=== PATIENT | female | born 1960 | race Caucasian/White ===

== ENCOUNTER 2023-12-17 14:57 | Emergency (ER) | payer MEDICARE, BC ==
[2023-12-17 15:40] VITALS: RESP 18; TEMP 97.9
--- NOTE | 2023-12-17 16:11 | ERPHSYRPT ---
- History of Present Illness Time Seen by Provider: 12/17/23 16:06 Historian: patient, family Exam Limitations: no limitations Patient Subjective Stated Complaint: pt state she is having left flank pain Triage Nursing Assessment: pt ambulated into the er; pt is axo x4; c/o left flank pain; pt states 8/10 left flank pain; pt denies pain to abd; active bowel sound in all quads; tenderness to left flank; c/o nausea, denies vomiting; skin PDW; no respiratory distress present; hypertensive Physician History: pt had onset of left flank pain today and hx prior stones and requiring surgery previously. No hx trauma. Some vomiting. mainly left flank and radiating into abd. Abd soft nontender without peritoneal signs or masses. no distension. chest clear ht reg . No CP or SObreath. No neuro symptoms. normal mental status. family is in ER as confirming independent source for Hx. Discussed risks/benefits with pt and family for testing /tx including CBC,CMP, CT ABD, Lactate Lipase AMylase, UA, IVF, Morphine, Benedryl, Zofran, and tehy wish to proceed so thesee are ordered. results discussed with pt and family. Timing/Duration: today Activities at Onset: none Quality: fullness, sharpness, throbbing Abdominal Pain Onset Location: flank Pain Radiation: flank, back Severity of Pain-Max: moderate Severity of Pain-Current: moderate Modifying Factors: Improves With: nothing Associated Symptoms: back, nausea, vomiting Previous symptoms: different symptoms, no recent treatment Allergies/Adverse Reactions: No Known Drug Allergies Allergy (Verified 04/08/16 18:53) Home Medications: Insulin Aspart [Novolog] 1 unit SQ DAILY 03/11/12 [History] Cephalexin Mh 250 mg [Keflex 250 mg] 250 mg PO DAILY 12/17/23 [History] Ergocalciferol (Vitamin D2) [Vitamin D2] 1,250 mcg PO WEEKLY 12/17/23 [History] Fluoxetine HCl 40 mg PO DAILY 12/17/23 [History] Lisinopril/Hydrochlorothiazide [Lisinopril-Hctz 20-12.5 mg Tab] 0.5 tab PO DAILY 12/17/23 [History] Omeprazole 40 mg PO DAILY 12/17/23 [History] Semaglutide [Ozempic] 0.25 mg SQ WEEKLY 12/17/23 [History] Topiramate [Topamax] 1 tab PO BID 12/17/23 [History] Tramadol HCl 50 mg [Ultram 50 mg] 50 mg PO BID PRN 12/17/23 [History] methocarbamoL [Methocarbamol] 500 mg PO BID 12/17/23 [History] Hx Tetanus, Diphtheria Vaccination/Date Given: Yes Hx Influenza Vaccination/Date Given: Yes Hx Pneumococcal Vaccination/Date Given: No Travel Risk - International Travel Have you traveled outside of the country in past 3 weeks: No - Emerging Infectious Disease Are you exhibiting symptoms associated with any current EIDs: No - Review of Systems Constitutional: No Fever, No Chills Eyes: No Symptoms Ears, Nose, & Throat: No Symptoms Respiratory: No Cough, No Dyspnea Cardiac: No Chest Pain, No Edema, No Syncope Abdominal/Gastrointestinal: Abdominal Pain, Nausea, Vomiting, No Diarrhea Genitourinary Symptoms: Flank Pain, No Dysuria Musculoskeletal: No Back Pain, No Neck Pain Skin: No Rash Neurological: No Dizziness, No Focal Weakness, No Sensory Changes Psychological: No Symptoms Endocrine: No Symptoms Hematologic/Lymphatic: No Symptoms Immunological/Allergic: No Symptoms All Other Systems: Reviewed and Negative - Past Medical History Pertinent Past Medical History: Yes Neurological History: Migraines ENT History: No Pertinent History Cardiac History: High Cholesterol, Hypertension Respiratory History: No Pertinent History Endocrine Medical History: Diabetes Type I Musculoskeletal History: Fibromyalgia, Osteoporosis GI Medical History: GERD, Hernia, Polyps, Ulcer History: Renal Disease Psycho-Social History: Anxiety Female Reproductive Disorders: No Pertinent History Other Medical History: polycystic kidneys. MITRAL VALVE PROLAPSE WITH REGURG. - Past Surgical History Past Surgical History: Yes Neuro Surgical History: No Pertinent History Cardiac: No Pertinent History Respiratory: No Pertinent History Gastrointestinal: No Pertinent History Genitourinary: Other Musculoskeletal: Orthopedic Surgery Female Surgical History: Hysterectomy, Dilation & Curettage, Other Other Surgical History: partial nephrectomy left kidney, bladder suspension, neck fusion Significant Family History: no pertinent family hx, hypertension - Social History Smoking Status: Never smoker Exposure to second hand smoke: No Alcohol Use: None Drug Use: none Patient Lives Alone: No - Social Determinants of Health Will the patient participate in the screening: Yes Do you worry about a steady place to live?: No Do you have any problems with any of the following?: No known problems In the past 12 months,have you had to go without utilities?: No Transportation Issues: No Has anyone in your support network made you feel unsafe?: No Have you or anyone in your house had to go without enough: No - Nursing Vital Signs Nursing Vital Signs: Initial Vital Signs Temperature 97.9 F 12/17/23 15:25 Pulse Rate 58 L 12/17/23 15:25 Respiratory Rate 18 12/17/23 15:25 Blood Pressure 168/72 12/17/23 15:25 O2 Sat by Pulse Oximetry 98 12/17/23 15:25 Pain Scale Pain Intensity 5 - Physical Exam General Appearance: no apparent distress, alert Eye Exam: PERRL/EOMI, eyes nml inspection Ears, Nose, Throat Exam: normal ENT inspection, pharynx normal, moist mucous membranes Neck Exam: normal inspection, non-tender, supple, full range of motion Respiratory Exam: normal breath sounds, lungs clear, No respiratory distress Cardiovascular Exam: regular rate/rhythm, normal heart sounds Gastrointestinal/Abdomen Exam: soft, tenderness (left flank tender), guarding, N o distention, No mass, No pulsatile mass Pelvic Exam: deferred Rectal Exam: deferred Back Exam: normal inspection, normal range of motion, No CVA tenderness, No vertebral tenderness Extremity Exam: normal inspection, normal range of motion, pelvis stable Neurologic Exam: alert, oriented x 3, cooperative, normal mood/affect, nml cerebellar function, sensation nml, No motor deficits Skin Exam: normal color, warm, dry SpO2: 98 - Course Nursing assessment & vital signs reviewed: Yes - CT Exams Abdomen/Pelvis CT Interpretation: Tele-radiologist Report, Other (left renal stone and renal cortical cysts/nodules) Ordered Tests: Active Orders 24 hr Category Date Time Status IV Insertion STAT Care 12/17/23 16:06 Active ABDOMEN AND PELVIS W/0 CONTRAS [CT] Stat Exams 12/17/23 16:28 Completed AMYLASE Stat Lab 12/17/23 16:20 Completed CBC W DIFF Stat Lab 12/17/23 16:20 Completed CMP Stat Lab 12/17/23 16:20 Completed HCG QUALITATIVE, SERUM Stat Lab 12/17/23 16:20 Completed LIPASE Stat Lab 12/17/23 16:20 Completed Lactic Acid Stat Lab 12/17/23 16:20 Completed UA W/RFX UR CULTURE Stat Lab 12/17/23 16:09 Completed Medication Summary Discontinued Medications Generic Name Dose Route Start Last Admin Trade Name Booker PRN Reason Stop Dose Admin Diphenhydramine HCl 25 mg 12/17/23 16:06 12/17/23 16:38 Diphenhydramine Hcl 50 Mg/Ml Vial IV 12/17/23 16:07 25 mg STAT ONE Administration Diphenhydramine HCl Confirm 12/17/23 16:22 Diphenhydramine Hcl 50 Mg/Ml Vial Administered 12/17/23 16:23 Dose 50 mg .ROUTE .STK-MED ONE Sodium Chloride 1,000 mls @ 999 mls/hr 12/17/23 16:06 12/17/23 18:32 Sodium Chloride 0.9% 1000 Ml IV 12/17/23 17:06 Infused .Q1H1M STA Infusion Sodium Chloride Confirm 12/17/23 16:22 Sodium Chloride 0.9% 1000 Ml Administered 12/17/23 16:23 Dose 1,000 mls @ ud .ROUTE .STK-MED ONE Morphine Sulfate 4 mg 12/17/23 16:06 12/17/23 16:41 Morphine Sulfate 4 Mg/Ml Injection IV 12/17/23 16:07 4 mg STAT ONE Administration Morphine Sulfate Confirm 12/17/23 16:22 Morphine Sulfate 4 Mg/Ml Injection Administered 12/17/23 16:23 Dose 4 mg .ROUTE .STK-MED ONE Ondansetron HCl 4 mg 12/17/23 16:06 12/17/23 16:36 Ondansetron Hcl 4 Mg/2 Ml Vial IV 12/17/23 16:07 4 mg STAT ONE Administration Ondansetron HCl Confirm 12/17/23 16:22 Ondansetron Hcl 4 Mg/2 Ml Vial Administered 12/17/23 16:23 Dose 4 mg .ROUTE .STK-MED ONE Lab/Rad Data: Laboratory Result Diagrams 12/17/23 16:20 12/17/23 16:20 Laboratory Results 12/17/23 12/17/23 12/17/23 Range/Units 16:20 16:20 16:20 WBC (3.98-10.04) x10^3/uL RBC (3.93-5.22) x10^6/uL Hgb (11.2-15.7) g/dL Hct (34.1-44.9) % MCV (79.4-94.8) fL MCH (25.6-32.2) pg MCHC (32.2-35.5) g/dL RDW (11.7-14.4) % Plt Count (182-369) x10^3/uL MPV (9.4-12.3) fL Gran % (34.0-71.1) % Immature Gran % (Auto) (0.001-0.429) % Nucleat RBC Rel Count (0.00-0.2) % Eos # (Auto) (0.04-0.36) x10^3/uL Immature Gran # (Auto) (0.001-0.031) x10^3u/L Absolute Lymphs (auto) (1.18-3.74) x10^3/uL Absolute Monos (auto) (0.24-0.86) x10^3/uL Absolute Nucleated RBC (0.00-0.012) x10^3u/L Lymphocytes % (19.3-51.7) % Monocytes % (4.7-12.5) % Eosinophils % (0.7-5.8) % Basophils % (0.1-1.2) % Absolute Granulocytes (1.56-6.13) x10^3/uL Basophils # (0.01-0.08) x10^3/uL Sodium 140 (135-145) mmol/L Potassium 3.9 (3.5-5.1) mmol/L Chloride 107 (98-107) mmol/L Carbon Dioxide 23 (22-30) mmol/L Anion Gap 13.4 (5-15) MEQ/L BUN 21 H (7-17) mg/dL Creatinine 1.12 H (0.52-1.04) mg/dL Estimated GFR 54.9 ML/MIN Glucose 103 (74-106) mg/dL Lactic Acid 0.9 (0.4-2.0) Calcium 9.3 (8.4-10.2) mg/dL Total Bilirubin 0.60 (0.2-1.3) mg/dL AST 26 (14-36) U/L ALT 21 (0-35) U/L Alkaline Phosphatase 94 (38-126) U/L Serum Total Protein 7.5 (6.3-8.2) g/dL Albumin 4.3 (3.5-5.0) g/dL Amylase 74 (30-110) U/L Lipase 207 (23-300) U/L Serum HCG, Qual NEGATIVE (NEGATIVE) Urine Color (Yellow) Urine Appearance (Clear) Urine pH (4.6-8.0) Ur Specific [place] (1.005-1.030) Urine Protein (Negative) Urine Glucose (UA) (Negative) mg/dL Urine Ketones (Negative) Urine Blood (Negative) Urine Nitrite (Negative) Urine Bilirubin (Negative) Urine Urobilinogen (0.2) mg/dL Ur Leukocyte Esterase (Negative) U Hyaline Cast (Auto) (0-2) /LPF Urine Microscopic RBC (0-5) /HPF Urine Microscopic WBC (0-5) /HPF Ur Epithelial Cells (None Seen) /HPF Urine Bacteria (None Seen) /HPF Urine Culture Reflexed (NO) 12/17/23 12/17/23 Range/Units 16:20 16:09 WBC 7.0 (3.98-10.04) x10^3/uL RBC 4.59 (3.93-5.22) x10^6/uL Hgb 13.2 (11.2-15.7) g/dL Hct 40.3 (34.1-44.9) % MCV 87.8 (79.4-94.8) fL MCH 28.8 (25.6-32.2) pg MCHC 32.8 (32.2-35.5) g/dL RDW 13.0 (11.7-14.4) % Plt Count 211 (182-369) x10^3/uL MPV 10.5 (9.4-12.3) fL Gran % 60.9 (34.0-71.1) % Immature Gran % (Auto) 0.3 (0.001-0.429) % Nucleat RBC Rel Count 0.0 (0.00-0.2) % Eos # (Auto) 0.11 (0.04-0.36) x10^3/uL Immature Gran # (Auto) 0.02 (0.001-0.031) x10^3u/L Absolute Lymphs (auto) 2.19 (1.18-3.74) x10^3/uL Absolute Monos (auto) 0.37 (0.24-0.86) x10^3/uL Absolute Nucleated RBC 0.00 (0.00-0.012) x10^3u/L Lymphocytes % 31.2 (19.3-51.7) % Monocytes % 5.3 (4.7-12.5) % Eosinophils % 1.6 (0.7-5.8) % Basophils % 0.7 (0.1-1.2) % Absolute Granulocytes 4.29 (1.56-6.13) x10^3/uL Basophils # 0.05 (0.01-0.08) x10^3/uL Sodium (135-145) mmol/L Potassium (3.5-5.1) mmol/L Chloride (98-107) mmol/L Carbon Dioxide (22-30) mmol/L Anion Gap (5-15) MEQ/L BUN (7-17) mg/dL Creatinine (0.52-1.04) mg/dL Estimated GFR ML/MIN Glucose (74-106) mg/dL Lactic Acid (0.4-2.0) Calcium (8.4-10.2) mg/dL Total Bilirubin (0.2-1.3) mg/dL AST (14-36) U/L ALT (0-35) U/L Alkaline Phosphatase (38-126) U/L Serum Total Protein (6.3-8.2) g/dL Albumin (3.5-5.0) g/dL Amylase (30-110) U/L Lipase (23-300) U/L Serum HCG, Qual (NEGATIVE) Urine Color Yellow (Yellow) Urine Appearance Clear (Clear) Urine pH 7.5 (4.6-8.0) Ur Specific [place] 1.020 (1.005-1.030) Urine Protein Negative (Negative) Urine Glucose (UA) Negative (Negative) mg/dL Urine Ketones Negative (Negative) Urine Blood Negative (Negative) Urine Nitrite Negative (Negative) Urine Bilirubin Negative (Negative) Urine Urobilinogen 1.0 A (0.2) mg/dL Ur Leukocyte Esterase Trace A (Negative) U Hyaline Cast (Auto) NONE SEEN (0-2) /LPF Urine Microscopic RBC 0-2 (0-5) /HPF Urine Microscopic WBC 0-2 (0-5) /HPF Ur Epithelial Cells None Seen (None Seen) /HPF Urine Bacteria None Seen (None Seen) /HPF Urine Culture Reflexed NO (NO) - Progress Progress: improved, re-examined Progress Note: 12/17/23 18:44 discussed with pt that although we see a stone we have not necessarily found a cause for her symptoms and further w/u is needed - she and prefer outpt f/u with PMDs rather than further w/u in ER or hospital at this time as she is feeling better and this is reasonable and they have the capacity to make this choice. Counseled pt/family regarding: lab results, diagnosis, need for follow-up, rad results Medical Desision Making - Independent Historian Additional History obtained from: Family - Discussion of managment Reviewed:: Test results, Need for additional workup Agreed on:: Treatment plan, need for follow-up - Diagnostic Testing Diagnostic test were ordered, analyzed, and reviewed by me: Yes Radiological Interpretation: Teleradiologist Report - Risk of complications The pt has a mod risk of morbidity or mortality based on: Need for prescription drug management The pt has a high risk of morbidity or mortality based on: Decision regarding hospitilization or escalation of hosp level of care - Departure Departure Disposition: Home Clinical Impression: flank/abd pain unknown cause, renal stones and cortical cysts Condition: Good Critical Care Time: No Referrals: DEONNA MOORE MD [Primary Care Provider] - Follow up/PCP as directed Instructions: Kidney Stones (DC), Flank Pain, Abdominal pain in adults - Discharge instructions Additional Instructions: As we discussed, although you have a kidney stone , there still could be other undetected causes for your pain still developing and follow-up is important with your Drs. Return meantime if not improving, vomiting, dizziness or any other symptoms or concerns. strain urine for stones. THe medical records will have to be called Monday to make copies for you of the lab and CT as they are required to release these and we are not allowed to w ithout their paperwork.
[2023-12-17] MEDS ORDERED: Sodium Chloride 0.9% 1000 ML 1,000 ML ONE (16:22)
[2023-12-17] MEDS ORDERED: Zofran 4 MG/2 ML VIAL ONE (16:22)
[2023-12-17] MEDS ORDERED: MORPHINE SULFATE 4 MG INJ ONE (16:22)
[2023-12-17] MEDS ORDERED: BENADRYL 50 MG/ML ONE (16:22)
[2023-12-17 16:23] LABS: Absolute Neutrophil Ct (ANC) 4.29 x10^3/uL (1.56-6.13); BASOPHIL % 0.7 % (0.1-1.2); Basophil (Absolute #) 0.05 x10^3/uL (0.01-0.08); Eosinophil % 1.6 % (0.7-5.8); Eosinophil (Absolute #) 0.11 x10^3/uL (0.04-0.36); Hematocrit 40.3 % (34.1-44.9); Hemoglobin 13.2 g/dL (11.2-15.7); IMMATURE GRAN # 0.02 x10^3u/L (0.001-0.031); IMMATURE GRAN % 0.3 % (0.001-0.429); Lymphocyte (Absolute #) 2.19 x10^3/uL (1.18-3.74); Lymphocytes % 31.2 % (19.3-51.7); Mean Cell Volume 87.8 fL (79.4-94.8); Mean Corpuscular Hemoglobin 28.8 pg (25.6-32.2); Mean Corpuscular Hgb Concent. 32.8 g/dL (32.2-35.5); Mean Platelet Volume 10.5 fL (9.4-12.3); Monocyte (Absolute #) 0.37 x10^3/uL (0.24-0.86); Monocytes % 5.3 % (4.7-12.5); Neutrophil % 60.9 % (34.0-71.1); Platelet Count 211 x10^3/uL (182-369); Red Blood Count 4.59 x10^6/uL (3.93-5.22)
[2023-12-17 16:31] LABS: ADD URINE CULTURE? NO (NO); Appearance Clear (Clear); Bacteria None Seen /HPF (None Seen); Bilirubin Negative (Negative); Blood Negative (Negative); Epithelial Cells None Seen /HPF (None Seen); Glucose, Urine Negative (Negative); Hyaline Casts NONE SEEN /LPF (0-2); Ketones Negative (Negative); Leukocyte Esterase Trace (Negative); Nitrite Negative (Negative); Ph 7.5 (4.6-8.0); Protein,Urine Dip Negative (Negative); RBC 0-2 /HPF (0-5); WBC 0-2 /HPF (0-5)
[2023-12-17] MEDS: Sodium Chloride 0.9% 1000 ML 1,000 ML IV STA (16:34)
[2023-12-17] MEDS: Zofran 4 MG/2 ML VIAL IV ONE (16:36)
[2023-12-17 16:37] LABS: ALBUMIN 4.3 g/dL (3.5-5.0); ANION GAP 13.4 MEQ/L (5-15); BILIRUBIN,TOTAL 0.6 mg/dL (0.2-1.3); Calcium 9.3 mg/dL (8.4-10.2); Creatinine 1 1.12 mg/dL (0.52-1.04); EST GLOMERULAR FILTRATION RATE 54.9 ML/MIN; Potassium 3.9 mmol/L (3.5-5.1); Total Protein 7.5 g/dL (6.3-8.2)
[2023-12-17] MEDS: BENADRYL 50 MG/ML IV ONE (16:38)
[2023-12-17 16:39] LABS: HCG SERUM TEST NEGATIVE (NEGATIVE)
[2023-12-17] MEDS: MORPHINE SULFATE 4 MG INJ IV ONE (16:41)
--- NOTE | 2023-12-17 18:24 | XRAY ---
CLINICAL HISTORY: left flank pain hx stones COMPARISON: The last study dated 09/21/2021. TECHNIQUE: Spiral axial continuous cuts were taken through the abdomen and pelvis with multiplanar reformatting and without contrast administration. One of the following dose reduction techniques was utilized for this exam: Automated exposure control, adjustment of the mA and/or kV according to patient size, and use of iterative reconstruction. FINDINGS: A small 4mm non-obstructing left lower calyx renal stone is noted with no associated back pressure changes ( stable since the last study). Bilateral cortical renal cysts are noted the largest one at the left upper pole measuring 6.8x5.7 cm with clear content and faint wall calcification, the largest one at the right mid kidney zone measuring 4.8x3.2cm with thin wall and clear content ( stable since the last study). Surgical clips noted at the left pelviureteric junction causing artifact. Both kidneys are of normal size and shape with no back pressure changes. Normal course and caliber of both ureters with no evidence of stones or mural abnormalities. Normal filling of the urinary bladder with no stones, masses or diverticula Normal CT density of the liver parenchyma with average size, regular outline, homogenous texture and no focal or diffuse mass lesion on a noncontrast basis. The retroperitoneal structures including the pancreas, spleen, adrenal glands and great vessels are grossly within normal limits. Normal-appearing appendix. No significant bowel dilatation. The uterus is not visualized, likely surgically removed. No adnexal mass. No significant lymph vishal enlargement or ascitic fluid collection. Suggestion of small fat-containing umbilical hernia. Bone window images showing spondylotic changes of the lumbar spine. Lower chest cuts showed a sizable hiatus hernia (stable since the last study ) IMPRESSION: No time interval changes since the last study regarding the following. A small 4mm non-obstructing left lower calyx renal stone. Bilateral cortical renal cysts more sizable at the left side[Bosniak type I]. A suggestion of small fat-containing umbilical hernia. Moderately sized hiatus hernia. Electronically Signed by: Pamela Aburto MD. (12/17/2023 18:19:45 EDT)
[2023-12-17] MEDS ORDERED: Hydromorphone 1 mg/ml Injection ONE (18:53)
[2023-12-17] MEDS: Hydromorphone 1 mg/ml Injection IV ONE (18:56)
[2023-12-17 19:07] VITALS: BP 138/63; PULSE 51; O2SAT 94
== END 2023-12-17 19:24 | disposition home or self-care (01) ==
LOC: ED 14:57
DX: R10.9 Unspecified abdominal pain (principal); N20.0 Calculus of kidney; N28.1 Cyst of kidney, acquired; R11.2 Nausea with vomiting, unspecified; E78.5 Hyperlipidemia, unspecified; I10 Essential (primary) hypertension; E10.9 Type 1 diabetes mellitus without complications; Z79.85 Long-term (current) use of injectable non-insulin antidiabetic drugs; Z79.891 Long term (current) use of opiate analgesic; Z79.899 Other long term (current) drug therapy
CPT/HCPCS: 36000; 36415; 74176; 80053; 81001; 82150; 83605; 83690; 84703; 85025; 96360; 96374; 96375; 99284; J1170; J1200; J2270; J2405